=== PATIENT | male | born 1970 | race Caucasian/White ===

== ENCOUNTER 2019-04-01 20:20 | Emergency (ER) | payer MEDICAID, OTHER ==
[~2019-04-01] VITALS: Ht 177.8 cm; Wt 100.0 kg
[2019-04-01] MEDS ORDERED: methylPREDNISolone sod succ 125mg/2ml vial IM ONE (20:35)
[2019-04-01] MEDS ORDERED: epiNEPHrine 1 mg/ml inj IM STA (20:35)
[2019-04-01] MEDS ORDERED: diphenhydrAMINE 25mg capsule PO ONE (20:35)
[2019-04-01] MEDS ORDERED: PRED20TA PO (21:43)
[2019-04-01 21:53] VITALS: BP 141/79
== END 2019-04-01 21:58 | disposition home or self-care (01) ==
LOC: ER 20:20
DX: K12.2 Cellulitis and abscess of mouth (principal); Z88.5 Allergy status to narcotic agent; Z91.040 Latex allergy status; Z88.6 Allergy status to analgesic agent; Z79.899 Other long term (current) drug therapy
CPT/HCPCS: 96372; 99283; J0171; J2930; Q0163

== ENCOUNTER 2019-10-28 09:18 | Emergency (ER) | payer SELFPAY ==
[~2019-10-28] VITALS: Ht 177.8 cm; Wt 97.7 kg
[2019-10-28 09:18] VITALS: BP 141/90
[2019-10-28] MEDS ORDERED: ALBU8HFA PO (09:34)
== END 2019-10-28 09:40 | disposition home or self-care (01) ==
LOC: ER 09:18
DX: J06.9 Acute upper respiratory infection, unspecified (principal); Z91.040 Latex allergy status; Z88.5 Allergy status to narcotic agent; Z79.899 Other long term (current) drug therapy
CPT/HCPCS: 99283